=== PATIENT | female | born 1975 | race Caucasian/White ===

== ENCOUNTER 2025-03-02 13:20 | Outpatient (CLI) | payer MEDICAID, SELFPAY | END 2025-03-02 13:21 | disposition home or self-care (01) | LOC: AMB 03-24 04:08 | PROVIDERS: Visit Provider Internal Medicine | DX: R42 Dizziness and giddiness (principal) | CPT/HCPCS: A0425; A0429 ==

== ENCOUNTER 2025-03-02 13:44 | Emergency (ER) | payer MEDICAID, SELFPAY ==
[2025-03-02 13:48] VITALS: BP 135/71; PULSE 64; RESP 16; TEMP 36.7; O2SAT 97; BMI 26.6
[2025-03-02 14:00] VITALS: BP 128/66; PULSE 62; RESP 14; O2SAT 99
--- NOTE | 2025-03-02 14:04 | ED.GENADULT ---
HPI - General Adult General Chief complaint: Dizziness/Vertigo Stated complaint: Dizzy Time Seen by Provider: 03/02/25 13:50 History of Present Illness HPI narrative: Patient is a 49-year-old woman who lives in [place]. She tells me she has stroke 6 months ago but is uncertain what medication to use on. Patient states she has been eating and drinking fine and not using any substances. She has had no fevers no chills no night sweats no cough no shortness of breath. She has no numbness no tingling but does feel lightheaded when she stands up. She has no focal complaints otherwise. She is otherwise in her usual state of health. Related Data Home Medications ?Medication ?Instructions ?Recorded ?Confirmed amlodipine 5 mg tablet 5 mg PO DAILY 03/02/25 03/02/25 aspirin 81 mg tablet 81 mg PO DAILY 03/02/25 03/02/25 atorvastatin 80 mg tablet 80 mg PO QHS 03/02/25 03/02/25 carvedilol 12.5 mg tablet 12.5 mg PO BID 03/02/25 03/02/25 cholecalciferol (vitamin D3) 50 50 mcg PO DAILY 03/02/25 03/02/25 mcg (2,000 unit) tablet (D3 DOTS) escitalopram oxalate 10 mg tablet 10 mg PO DAILY 03/02/25 03/02/25 lisinopril 40 mg tablet 40 mg PO DAILY 03/02/25 03/02/25 methocarbamol 750 mg tablet 750 mg PO QID 03/02/25 03/02/25 sennosides 8.6 mg capsule (senna) 8.6 mg PO DAILY 03/02/25 03/02/25 trazodone 50 mg tablet 50 mg PO QHS 03/02/25 03/02/25 Allergies Allergy/AdvReac Type Severity Reaction Status Date / Time No Known Drug Allergies Allergy Verified 03/02/25 13:48 Review of Systems Status of ROS: Reports: 10 or more systems reviewed and unremarkable except as noted in History and below [facility] Social History Smoking Status: Current every day smoker How often do you have a drink containing alcohol: never AUDIT-C Alcohol total score: 0 Non-prescribed substance use: former substance user 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 Poor dentition. EYES: No scleral icterus. LYMPH: No supraclavicular or cervical lymphadenopathy. SKIN: Visible skin seen during exam normal or with benign process only. EXT: No dependent lower extremity pedal edema. HEART: Regular rate and rhythm with no murmurs, rubs, or gallops. LUNGS: Clear to auscultation bilaterally with no crackles or wheezes. ABD: Soft, non tender, non distended. PSYCH: Good eye contact, speech is not pressured. Neurologic she does wear splint on her right ankle likely for footdrop. She has absolutely no neurologic findings on exam otherwise Const: Vital Signs, click to edit/add: Vital Signs - 24 hr 03/02/25 13:48 03/02/25 14:00 03/02/25 14:30 Temperature 98.0 F Pulse Rate 62 60 Pulse Rate [Pulse Oximeter] 64 Respiratory Rate 16 14 16 Blood Pressure 128/66 Blood Pressure [Ri ght Upper Arm] 135/71 Pulse Oximetry 97 99 97 Oxygen Delivery Me thod Room Air Course Course ED Course: Patient seen and examined. EKG CBC UA comprehensive metabolic panel pending. Vital Signs Vital signs: Initial Vital Signs Temperature 98.0 F 03/02/25 13:48 Temperature Source Temporal Artery Scan 03/02/25 13:48 Pulse Rate 64 03/02/25 13:48 Pulse Rhythm Regular 03/02/25 13:48 Respiratory Rate 16 03/02/25 13:48 Blood Pressure 135/71 03/02/25 13:48 Blood Pressure Mean 92 03/02/25 13:48 Blood Pressure Position Supine 03/02/25 13:48 Pulse Oximetry 97 03/02/25 13:48 Oxygen Delivery Method Room Air 03/02/25 13:48 Vital Signs Temperature 98.0 F 03/02/25 13:48 Pulse Rate 64 03/02/25 13:48 Respiratory Rate 16 03/02/25 13:48 Blood Pressure 135/71 03/02/25 13:48 Pulse Oximetry 97 03/02/25 13:48 Oxygen Delivery Method Room Air 03/02/25 13:48 Temperature 98.0 F 03/02/25 13:48 Pulse Rate 60 03/02/25 14:30 Respiratory Rate 16 03/02/25 14:30 Blood Pressure 128/66 03/02/25 14:00 Pulse Oximetry 97 03/02/25 14:30 Oxygen Delivery Method Room Air 03/02/25 13:48 Medical Decision Making MDM Narrative Medical decision making narrative: Patient is a 49-year-old woman who has been feeling somewhat weak. No focal neurologic defects although she does wear splint on her right leg for presume footdrop. I did noted a normal exam. In addition I in order normal vital signs normal CBC electrolytes and urine as well as EKG. At this time I do not believe she has any significant pathology and will be returned [place]. I did ask her to establish with primary care doctor she does have some significant comorbidities. Lab Data Labs: Lab Results 03/02/25 03/02/25 Range/Units 14:16 14:20 WBC 7.89 (4.50-11.00) K/uL RBC 4.23 (4.00-5.20) m/uL Hgb 13.0 (12.0-16.0) gm/dL Hct 39.7 (33.0-51.0) % MCV 94 (80-100) fL MCH 31 (26-34) pg MCHC 33 (32-36) gm/dL RDW Coeff of Jeff 13.9 (11.5-15.5) % Plt Count 305 (140-440) K/uL Neut % (Auto) 55.1 (42.0-72.0) % Lymph % (Auto) 29.9 (20-44) % [place] % (Auto) 7.6 (0.0-11.0) % Eos % (Auto) 6.5 (0.0-7.0) % Baso % (Auto) 0.8 (0.0-3.0) % Neut # (Auto) 4.35 (1.7-7.0) K/uL Lymph # (Auto) 2.36 (0.90-2.90) K/uL [place] # (Auto) 0.60 (0.00-0.90) K/UL Eos # (Auto) 0.51 H (0.00-0.50) K/uL Baso # (Auto) 0.06 (0.00-0.30) K/uL Abs Immat Gran (auto) 0.01 (0.00-0.30) K/uL Imm/Tot Granulo (auto) 0.1 % Sodium 137 (135-149) mmol/L Potassium 4.2 (3.6-5.1) mmol/L Chloride 100 (96-114) mmol/L Carbon Dioxide 28 (20-32) mmol/L Anion Gap 9 (7-15) mEq/L BUN 25 (7-30) mg/dL Creatinine 1.0 (0.5-1.5) mg/dL Estimated Creat Clear 65.45 Estimated GFR 69 ml/min Glucose 125 H (60-115) mg/dL Calcium 9.1 (8.4-10.6) mg/dL Total Bilirubin 0.4 (0.1-1.5) mg/dL AST 26 (12-35) U/L ALT 24 (4-35) U/L Alkaline Phosphatase 74 (40-150) U/L Total Protein 7.1 (6.0-8.3) g/dL Albumin 4.3 (3.3-5.0) g/dL Urine Color Yellow (Yellow) Urine Appearance Clear (Clear) Urine pH 5.5 (5.0-8.5) Ur Specific Steele <= 1.005 (1.000-1.030) Urine Protein Negative (Negative) Urine Glucose (UA) Negative (Negative) Urine Ketones Negative (Negative) Urine Blood Negative (Negative) Urine Nitrite Negative (Negative) Urine Bilirubin Negative (Negative) Urine Urobilinogen 0.2 (0.2-1.0) Ur Leukocyte Esterase Negative (Negative) Discharge Plan Discharge Clinical Impression: Weakness Patient Disposition: Home, Self-Care Condition: Stable Instructions: Weakness (ED) Additional Instructions: Continue current medications Establish with primary care doctor. Prescriptions: No Action amlodipine 5 mg tablet 5 mg PO DAILY aspirin 81 mg tablet 81 mg PO DAILY atorvastatin 80 mg tablet 80 mg PO QHS carvedilol 12.5 mg tablet 12.5 mg PO BID Rx Instructions: must administer with a meal/food escitalopram oxalate 10 mg tablet 10 mg PO DAILY lisinopril 40 mg tablet 40 mg PO DAILY senna 8.6 mg capsule 8.6 mg PO DAILY methocarbamol 750 mg tablet 750 mg PO QID trazodone 50 mg tablet 50 mg PO QHS cholecalciferol (vitamin D3) [D3 DOTS] 50 mcg (2,000 unit) tablet 50 mcg PO DAILY Follow Up/Referrals: Provider,Not a Local [Primary Care Provider, Family Practice] Stand Alone Forms: MyHealth Info Instructions
[2025-03-02 14:21] LABS: Appearance Urine Clear (Clear)
[2025-03-02 14:30] VITALS: PULSE 60; RESP 16; O2SAT 97
[2025-03-02 14:31] LABS: Hematocrit* 39.7 % (33.0-51.0); Hemoglobin* 13.0 gm/dL (12.0-16.0); Immature Granulocytes Abs Auto 0.01 K/uL (0.00-0.30); Immature Granulocytes Pct Auto 0.1 %; Lymphocytes Absolute Auto 2.36 K/uL (0.90-2.90); Mean Corpuscular HGB Conc 33 gm/dL (32-36); Mean Corpuscular Hemoglobin 31 pg (26-34); Mean Corpuscular Volume 94 fL (80-100); RDW Coefficient of Variation % 13.9 % (11.5-15.5); Red Blood Count* 4.23 m/uL (4.00-5.20); White Blood Count* 7.89 K/uL (4.50-11.00)
[2025-03-02 14:32] VITALS: BP 144/79; PULSE 62; RESP 20; O2SAT 97
[2025-03-02 14:48] LABS: Albumin* 4.3 g/dL (3.3-5.0); Chloride* 100 mmol/L (96-114); Sodium* 137 mmol/L (135-149)
[2025-03-02 14:49] LABS: Potassium* 4.2 mmol/L (3.6-5.1); Slide Review Reflex No
--- OUTSIDE RECORDS SUMMARY | 2025-03-02 14:49 | XMS_ITS | Clinical Summary ---
Author Organization [facility] Address [address] [place] [address] Care Team Providers Care Commutator Undercutter Name Role Phone Unavailable Primary Care Provider Unavailabl e Allergies No known active allergies Social History Tobacco Use Types Packs/Day Years Used Date Smoking Tobacco: Never Assessed Comments Unknown Sex and Gender Information Value Date Recorded Sex Assigned at Not on file Legal Sex Female 12:02 AM CDT Gender Identity Not on file Sexual Orientation Not on file Plan of Treatment Health Maintenance Due Date Last Done Comments Pneumococcal Vaccine: 50+ Years (1 of 1 - PCV) 025 RSV Vaccines (1 - 1-dose 75+ series) 2049
--- OUTSIDE RECORDS SUMMARY | 2025-03-02 14:49 | XMS_ITS | CCD ---
Author Organization Unknown Care Team Providers Care Land Management Supervisor Name Role Phone Tova Conway MD Primary Care Provider Un available Unavailable Chronic Care Management Unavaila ble Summary Purpose [employer] Insurance Providers Payer name Policy type / Coverage type Covered republican ID Effective Begin Date Effective End Date Medicaid [place] [id number] Unknown Family History Family History data not found Medication Administered No Medication Administered data Medical Equipment No Medical Equipment data Assessments No Assessment data Reason For Visit No Reason For Visit data Review of Systems No Review of Systems data Physical Exam No Physical Exam data History of Present Illness No History of Present Illness data Advance Directives No Advance Directive data
--- OUTSIDE RECORDS SUMMARY | 2025-03-02 14:50 | XMS_ITS | Clinical Summary ---
Author Organization [facility] Address [address] [place] [id number] Care Team Providers Care Solar Design Engineer Name Role [facility] Provider Sky Mtz SHOT PEEN OPERATOR Unavailable [phone] Tova De La Rosa RN Unavailable [phone] Allergies No known active allergies Medications wheelchairIndica tions:Right hemiparesis (HC),Acute ischemic right GEORGE stroke (HC),Impaired functional mobility, balance, gait, and endurance,Impair ed mobility and ADLs Wheelchair: Standard with leg rests: (Swing away Length of need: 99 months 1 Each 10/20/19 25 Active acetaminophen (TYLENOL EXTRA STRGTH) 500 mg tabletIndication s:Chronic low back pain, unspecified back pain laterality, unspecified whether sciatica present Take 2 Tablets (1,000 mg) by mouth three times daily. Max acetaminophen dose: 4000mg in 24 hrs. 100 Tablet 02/02/20 25 Active atorvastatin (LIPITOR) 80 mg tabletIndication s:Cerebrovascula r accident (CVA), unspecified mechanism (HC) Take 1 Tablet (80 mg) by mouth at bedtime. 30 Tablet 02/02/20 25 Active sennosides (Senna) 8.6 mg tabletIndication s:Constipation, unspecified constipation type Take 1 Tablet (8.6 mg) by mouth once daily. 30 Tablet 02/02/20 25 Active methocarbamoL 750 mg tabletIndication s:Chronic low back pain, unspecified back pain laterality, unspecified whether sciatica present Take 1 Tablet (750 mg) by mouth four times daily. 120 Tablet 02/02/20 25 Active traZODone (DESYREL) 50 mg tabletIndication s:Insomnia, unspecified type Take 1 Tablet (50 mg) by mouth at bedtime. 30 Tablet 02/02/20 25 Active amLODIPine (NORVASC) 5 mg tabletIndication s:HTN (hypertension) Take 1 Tablet (5 mg) by mouth once daily. 30 Tablet 02/02/20 25 Active lisinopriL (PRINIVIL; ZESTRIL) 40 mg tabletIndication s:Cerebrovascula r accident (CVA), unspecified mechanism (HC) Take 1 Tablet (40 mg) by mouth once daily. 30 Tablet 02/02/20 25 Active cholecalciferol (Vitamin D3) 2,000 unit tabletIndication s:Vitamin D deficiency Take 1 Tablet (2,000 units) by mouth once daily. 30 Tablet 02/02/20 25 Active carvediloL (COREG) 12.5 mg tabletIndication s:Cerebrovascula r accident (CVA), unspecified mechanism (HC) Take 1 Tablet (12.5 mg) by mouth two times daily with meals. 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 30 Tablet 02/02/20 25 Active benzocaine (dental) (Oral Pain Relief) 20 % mucosal gelIndications:M outh pain Apply a thin layer to affected areas inside mouth up to 4 times daily. 9 g 02/02/20 25 Active aspirin chewable 81 mg tabletIndication s:Cerebrovascula r accident (CVA), unspecified mechanism (HC) Chew 1 Tablet (81 mg) by mouth once daily. 30 Tablet 02/02/20 25 Active LORazepam (Ativan) 0.5 mg tabIndications:A erophobia Take 1 tab (0.5 mg) by mouth 30-60 minutes before flying. 2 Tablet 02/02/20 25 Active sennosides (Senna) 8.6 mg tabletIndication s:Constipation, unspecified constipation type Take 1 Tablet (8.6 mg) by mouth once daily. 30 Tablet 09/27/19 25 025 Discontin ued(Reord er (E-cancel not sent)) atorvastatin (LIPITOR) 80 mg tabletIndication s:Cerebrovascula r accident (CVA), unspecified mechanism (HC) Take 1 Tablet (80 mg) by mouth at bedtime. 30 Tablet 5 2:37 PM CDT 09/29/19 25 025 Discontin ued(Reord er (E-cancel not sent)) lisinopriL (PRINIVIL; ZESTRIL) 40 mg tabletIndication s:Cerebrovascula r accident (CVA), unspecified mechanism (HC) Take 1 Tablet (40 mg) by mouth once daily. 30 Tablet 5 12:08 PM CDT 09/29/19 025 Discontin ued(Reord er (E-cancel not sent)) carvediloL (COREG) 12.5 mg tabletIndication s:Cerebrovascula r accident (CVA), unspecified mechanism (HC) Take 1 Tablet (12.5 mg) by mouth two times daily with meals. 60 Tablet 5 12:08 PM CDT 09/29/19 025 Discontin ued(Reord er (E-cancel not sent)) aspirin chewable 81 mg chewable tabletIndication s:Cerebrovascula r accident (CVA), unspecified mechanism (HC) Chew 1 Tablet (81 mg) by mouth once daily. 30 Tablet 09/29/19 25 025 Discontin ued(Reord er (E-cancel not sent)) amLODIPine (NORVASC) 5 mg tabletIndication s:HTN (hypertension) Take 1 Tablet (5 mg) by mouth once daily. 30 Tablet 5 11:20 AM CDT 11/07/19 25 025 Discontin ued(Reord er (E-cancel not sent)) acetaminophen (TYLENOL EXTRA STRGTH) 500 mg tabletIndication s:Chronic low back pain, unspecified back pain laterality, unspecified whether sciatica present Take 2 Tablets (1,000 mg) by mouth three times daily. Max acetaminophen dose: 4000mg in 24 hrs. 100 Tablet 11/15/19 25 025 Discontin ued(Reord er (E-cancel not sent)) traZODone (DESYREL) 50 mg tabletIndication s:Insomnia, unspecified type Take 1 Tablet (50 mg) by mouth at bedtime. 30 Tablet 5 12:44 PM CDT 11/28/19 25 025 Discontin ued(Reord er (E-cancel not sent)) cholecalciferol (Vitamin D3) 2,000 unit tabletIndication s:Vitamin D deficiency Take 1 Tablet (2,000 units) by mouth once daily. 30 Tablet 12/27/19 025 Discontin ued(Reord er (E-cancel not sent)) methocarbamoL 750 mg tabletIndication s:Chronic low back pain, unspecified back pain laterality, unspecified whether sciatica present Take 1 Tablet (750 mg) by mouth four times daily. 120 Tablet 5 3:35 PM CDT 12/28/19 025 Discontin ued(Reord er (E-cancel not sent)) benzocaine (dental) (Oral Pain Relief) 20 % mucosal gelIndications:M outh pain Apply a thin layer to affected areas inside mouth up to 4 times daily. 9 g 5 2:29 PM CDT 01/11/20 025 Discontin ued(Reord er (E-cancel not sent)) escitalopram oxalate (LEXAPRO) 10 mg tablet Take 1 Tablet (10 mg) by mouth once daily. 30 Tablet 5 3:01 PM CDT 01/18/20 25 025 Discontin ued(Reord er (E-cancel not sent)) Active Problems Problem Noted Date Diagnosed Date Acute ischemic right GEORGE stroke 09/07/2024 Hypertension 09/07/2024 Current smoker 09/07/2024 History of methamphetamine abuse 09/07/2024 Anemia 09/07/2024 High-risk human papillomavir us (HPV) DNA detected in cervical specimen, not type 16 or 18 09/04/2024 Overview (09/04/2024): 07/2024 NIL/HPV +, HPV 16/18 negative Plan: PAP/HPV due 07/2025 Stroke 08/28/2024 Encounters Date Type Department Care Team Description 02/28/2025 1:37 PM MOBILITY DEVELOPER - 02/28/2025 11:59 PM MOBILITY DEVELOPER Hospital Encounter [address] [place] [address] Sky Mtz, Kaylie Kemp, PT 02/28/2025 Travel 02/26/2025 10:15 AM MOBILITY DEVELOPER - 02/26/2025 11:59 PM MOBILITY DEVELOPER Hospital Encounter [address] [address] Sky Mtz, Kaylie Kemp, PT 02/25/2025 10:31 AM MOBILITY DEVELOPER - 02/25/2025 11:59 PM MOBILITY DEVELOPER Hospital Encounter [address] [place] [address] Sky Mtz, Cintia Castro, OT 02/25/2025 Travel 02/20/2025 8:35 AM CDT - 02/20/2025 11:59 PM CDT Hospital Encounter [address] [address] Sky Mtz, Kaylie Kemp, PT 02/20/2025 Travel 02/18/2025 8:28 AM CDT - 02/18/2025 11:59 PM CDT Hospital Encounter [address] [place] [address] Sky Mtz, Lucina Gay, KYARA Right hemiparesis (HC); Acute ischemic right GEORGE stroke (HC); Impaired functional mobility, balance, gait, and endurance; Impaired mobility and ADLs; Impaired cognition 02/18/2025 Travel 02/15/2025 10:03 AM CDT - 02/15/2025 11:59 PM CDT Hospital Encounter [address] [address] Sky Mtz, Katerina Manuel OT Right hemiparesis (HC); Acute ischemic right GEORGE stroke (HC); Impaired functional mobility, balance, gait, and endurance; Impaired mobility and ADLs; Impaired cognition 02/15/2025 Travel 02/08/[address] [address] Vince Wellington MD 02/05/2025 Patient Outreach [address] [address] Tova De La Rosa RN Stroke Rehab Care Coordination - [facility] 02/01/2025 8:30 AM CDT [facility] [address] [address] Sky Mtz NP Transitional Care Visit (Discharge Summary) 02/01/2025 Travel 01/31/2025 1:00 PM CDT [facility] [address] [address] Vince Wellington MD 01/31/2025 Travel 01/29/2025 9:30 AM CDT Office Visit [address] [address] Veronica Crane, PhD, LP Individual Therapy 01/28/2025 Orders Only [address] [address] Sky Mtz NP <No scans attached> 01/25/2025 Travel 01/24/2025 8:30 AM CDT [facility] [address] [address] Sky Mtz NP Transitional Care Visit (Follow-Up) 01/24/2025 Orders Only [address] [address] Sky Mtz, SHEEBA <No scans attached> 01/22/2025 9:30 AM CDT Office Visit [address] [address] Veronica Crane, PhD, LP Individual Therapy 01/21/2025 Travel 01/18/2025 8:30 AM CDT [facility] [address] [address] Sky Mtz, SHEEBA Transitional Care Visit (Follow-Up) 01/17/2025 1:00 PM CDT [facility] [address] [address] Vince Wellington MD 01/17/2025 Travel 01/15/2025 12:00 PM CDT Office Visit [address] [address] Veronica Crane, PhD, LP Individual Therapy 01/14/2025 Travel 01/10/2025 9:00 AM CDT [facility] [address] [address] Sky Mtz, SHEEBA Transitional Care Visit (Follow-Up) 01/10/2025 Orders Only [address] [address] Sky Mtz NP <No scans attached> 01/10/2025 Orders Only [address] [address] Sky Mtz NP <No scans attached> 01/08/2025 2:00 PM CDT Office Visit [facility] [address] [address] Veronica Crane, PhD, LP Individual Therapy 01/07/2025 Travel 01/05/2025 10:00 AM CDT Nurse/Clinic Staff Only [facility] [address] [place] [address] Monitor, Mhmy Event/Holter Zio Monitor (2 of 2 monitors ordered) 01/04/2025 1:00 PM CDT [facility] [address] [address] Sky Mtz NP Transitional Care Visit (Follow-Up) 12/31/2024 11:30 AM CDT [facility] [address] [address] Vince Wellington MD 12/31/2024 Travel 12/28/2024 Travel 12/27/2024 8:30 AM CDT [address] [address] Sky Mtz NP Transitional Care Visit (Follow-Up) 12/27/2024 Orders Only [address] [address] Sky Mtz NP <No scans attached> 12/26/2024 Orders Only [address] [address] Sky Mtz NP <No scans attached> 12/25/2024 Lab Requisition [facility] [phone] Sky Mtz NP 12/21/2024 Lab Requisition [facility] [phone] Sky Mtz NP 12/21/2024 Travel 12/20/2024 10:00 AM CDT [facility] [address] [address] Sky Mtz, SHEEBA Transitional Care Visit (Follow-Up) 12/20/2024 Orders Only [address] [address] Sky Mtz, SHEEBA <No scans attached> 12/18/2024 3:00 PM CDT Office Visit [address] [address] Veronica Crane, PhD, LP Individual Therapy 12/18/2024 Travel 12/14/2024 8:30 AM CDT [facility] [address] [address] Sky Mtz, SHEEBA Transitional Care Visit (Follow-Up) 12/14/2024 Orders Only [address] [address] Sky Mtz, SHEEBA <No scans attached> 12/11/2024 11:00 AM CDT Office Visit [address] [address] Veronica Crane, PhD, LP Individual Therapy 12/07/2024 Nurse/Clinic Staff Only [facility] [address] [place] [address] Monitor, Mhmy Event/Holter Zio Monitor (1 of 2 monitors ordered) 12/07/2024 Travel 12/06/2024 3:30 PM CDT [facility] [address] [address] Vince Wellington MD 12/06/2024 11:00 AM CDT [facility] [address] [address] Sky Mtz NP Transitional Care Visit (Follow-Up) 12/06/2024 Orders Only [facility] [address] [place] [phone] Sky Mtz, SHEEBA <No scans attached> 12/06/2024 Travel 12/04/2024 11:00 AM CDT Office Visit [facility] [address] [place] [phone] Veronica Crane, PhD, LP Individual Therapy 11/30/2024 Travel from Last 3 Months Immunizations Immunization Administration Dates Next Due Hepatitis B (Adult) 10/23/2002,05/26/2002,2002 Influenza, IIV3 (Age >=3 years) 03/13/2007 Tdap 04/25/2006 Tuberculin Skin Test, Unspecified 02/06/2018, Family History Medical History Relation Name Comments CVD Father Cancer-colon Father Heart attack Father Relation Name Status Comments Father Social History Tobacco Use Types Packs/Day Years Used Date Smoking Tobacco: Every Day Cigarettes 0.5 10.5 Started: 09/07/2014 Smokeless Tobacco: Never Tobacco Cessation:Ready to Q uit: Not Asked; Counseling Given: Not Answered Alcohol Use Standard Drinks/Week Comments Not Currently 0 (1 standard drink = 0.6 oz pur e alcohol) Social Connections Answer Date Recorded Do you often feel lonely or isolated from those around you? 4 09/07/2024 Financial Resource Strain Answer Date R ecorded Difficulty of Paying Living Expenses Not on file 09/07/2024 Difficulty of Paying Living Expenses 3 09/07/2024 Food Insecurity Answer Date Recorded Do you worry your food will run out before you are able to buy more? 1 09/07/2024 Transportation Needs Answer Date Record ed Does lack of transportation keep you from medica l appointments? 1 09/07/2024 Does lack of transportation keep you from work, meetings or getting things that you need? 2 09/07/2024 Housing Stability Answer Date Recorded What is your housing situation today? 3 09/07/2024 Interpersonal Safety Answer Date Record ed Are you being hit, kicked, p ushed or yelled at (see row info)? No 09/07/2024 Interpersonal Safety Abuse 12 - 18 Not on file 09/07/2024 Interpersonal Safety Ambulatory Vulnerability No t on file 09/07/2024 Utilities Answer Date Recorded Do you have trouble paying f or utilities (for example, heat, electricity, water, phone)? 2 09/07/2024 Comments Unknown Sex and Gender Information Value Date Recorded Sex Assigned at Not on file Legal Sex Female 12:12 AM CDT Gender Identity Not on file Sexual Orientation Not on file Obstetrics History Para Term AB IAB SAB Ectopic Multiple Livin g Live Births 2 1 1 1 1 1 1 Date Outcome GA Total Labor Labor/2nd/3rd Weight Sex Type Anes PTL [place] A1 A5 Name Clin SAB 2008 Term M Vag Living Complications:Gestational di abetes mellitus Last Filed Vital Signs Vital Sign Reading Time Taken Comments Blood Pressure 139/81 02/01/2025 2:00 PM CDT Pulse 64 02/01/2025 2:00 PM CDT Temperature 36.6 C (97.8 F) 02/01/2025 2:00 PM CDT Respiratory Rate 18 02/01/2025 2:00 PM CDT Oxygen Saturation 97% 02/01/2025 2:00 PM CDT Inhaled Oxygen Concentration - - Weight 74.6 kg (164 lb 6.4 oz) 09/09/2024 6:24 A M CDT Height 170.2 cm (5' 7) 09/07/2024 1:39 PM CDT Body Mass Index 25.75 09/07/2024 1:39 PM CDT Plan of Treatment Upcoming Encounters Date Type Department Care Team (Late st Contact Info) Description 03/05/2025 1:45 PM MOBILITY DEVELOPER Appointment [address] [address] Kaylie Sawant, PT [address] [place] [address] 03/07/2025 1:45 PM MOBILITY DEVELOPER Appointment [address] [address] Kaylie Sawant, PT [address] [place] [address] 03/07/2025 2:30 PM MOBILITY DEVELOPER Appointment [address] [place] [address] Armida Fitzpatrick, OT 35 [facility] [place] [address] 03/12/2025 9:30 AM MOBILITY DEVELOPER Appointment [address] [place] [address] Kaylie Sawant, PT 35 [facility] [address] [facility] [place] [address] 03/14/2025 8:45 AM MOBILITY DEVELOPER Appointment [address] [place] [address] Cintia Lee, OT [address] [place] [address], [place] [address] 03/14/2025 9:30 AM MOBILITY DEVELOPER Appointment [address] [place] [address] Kaylie Sawant, PT 35 [facility] [place] [address] 03/18/2025 11:00 AM MOBILITY DEVELOPER Appointment [address] [place] [address] Kaylie Sawant, PT [facility] [place] [address] 03/20/2025 9:30 AM MOBILITY DEVELOPER [address]ointment [address] [place] [place] [address] Armida Fitzpatrick, OT 35 [facility] [place] [address] 03/26/2025 12:15 PM MOBILITY DEVELOPER Appointment [address] [place] [address] Cintia Lee, OT [address] [place] [address] 03/26/2025 1:00 PM MOBILITY DEVELOPER Appointment [address] [place] [address] Kaylie Sawant, PT 35 [place] [address] 03/28/2025 10:15 AM MOBILITY DEVELOPER Appointment [address] [address] Kaylie Sawant, PT 35 [place] [address] 04/02/2025 12:15 PM MOBILITY DEVELOPER Appointment [address] [place] [address] Cintia Lee, OT [address] [place] [address] 04/02/2025 1:00 PM MOBILITY DEVELOPER Appointment [address] [address] Kaylie Sawant, PT 35 [place] [address] 04/04/2025 10:15 AM MOBILITY DEVELOPER Appointment [address] [address] Kaylie Sawant, PT [address] [facility] [place] [address] 04/09/2025 12:15 PM MOBILITY DEVELOPER Appointment [address] [address] Cintia Lee, OT [address] [place] [address] 04/09/2025 1:00 PM MOBILITY DEVELOPER Appointment [address] [place] [address] Kaylie Sawant, PT 35 [place] [address] 04/11/2025 10:15 AM MOBILITY DEVELOPER Appointment [address] [address] Kaylie Sawant, PT 35 [place] [address] 04/23/2025 10:45 AM MOBILITY DEVELOPER Office Visit [facility] [address] [place] [phone] Vince Wellington MD [address] [place], [place] [phone] Health Maintenance Due Date Last Done Comments Depression screening for age 12+ 1986 HIV for age 15-65 1989 BMI (ht and wt on same day) for age 18+ 1992 Hepatitis C screening for age 18-79 1992 Pneumococcal series for age 50+ (1 of 2 - PCV) 1993 Tetanus booster 04/25/2016 04/25/2006 Colonoscopy through age 75 2019 Mammogram for age 45-75 2019 Zoster (shingles) series for age 50+ (1 of 2) 2024 Influenza Vaccine (#1) 2024 03/13/2007 Pap test for age 21-65 08/15/2025 08/15/2024, 2024 Lipids for age 45-75 08/27/2029 08/27/2024 RSV vaccine for adults or pr egnancy (1 - 1-dose 75+ series) 2049 Hepatitis B series for 19+ Completed 10/23, 05/26/2002, 04/25/2002 Procedures Procedure Name Priority Date/Time Associated Diagnosis Comments VITAMIN D 25 (DEFICIENCY) Routine 12/26/2024 7:03 AM CDT Essential (primary) hypertension EXTENDED HOLTER Routine 12/07/2024 Cerebrovascular accident (CVA), unspecified mechanism (HC) EXTENDED HOLTER Routine 12/07/2024 Cerebrovascular accident (CVA), unspecified mechanism (HC) LIPID PANEL ONELIA 08/27/2024 10:45 PM CDT HPV HIGH RISK Routine 08/15/2024 3:08 PM CDT Cervical cancer screening from Last 3 Months or Most Recently Relevant to Health Maintenance Results * VITAMIN D 25 (DEFICIENCY) (12/26/2024 7:03 AM CDT) Pathologist [facility] VITAMIN D TOTAL 61.6 20.0 - 80.0 ng/mL 12/26/2024 1:32 PM CDT [facility] Blood BLOOD SPECIMEN / Unknown Venipuncture / Unknown 12/26/2024 7:03 AM CDT 12/26/2024 8:49 AM CDT Narrative [facility] - 12/26/2024 1:32 PM CDT Vitamin D Status Deficiency: <20 ng/mL Insufficiency: 20-29 ng/mL Sufficiency: 30-80 ng/mL Possible Toxicity: >80 ng/mL Based on [place] [employer] recommendations Biotin supplements may cause clinically significant interference for this test assay. If interference is suspected, it is strongly recommended that biotin is discontinued for at least one week prior to retesting. us Sky Mtz NP SEND OUTS Final Resu lt [facility] [address] [place] [address], [place] * ZIO PATCH XT - weekly to monthly symptoms. (12/07/2024) 12/07/2024 Narrative Rigoberto Vza MD - 01/31/2025 12:00 AM CDT Predominant rhythm sinus with intact AV conduction (HR 44-160, avg 59 bpm) Rare PACs were present Rare isolated PVCs were present Patient triggered events did not correlate to arrhythmias Please see scan document for full report. Signed By Rigoberto Vaz MD Procedure Note Rigoberto Vaz MD - 01/31/2025 Predominant rhythm sinus with intact AV conduction (HR 44-160, avg 59bpm) Rare PACs were present Rare isolated PVCs were present Patient triggered events did not correlate to arrhythmias Please see scan document for full report. Signed By Rigoberto Vaz MD PFI Acquisition Treat DO CARDIAC SERVICES ORD Final Result * ZIO PATCH XT - weekly to monthly symptoms. (12/07/2024) 12/07/2024 Narrative Cory Lopez MD - 01/30/2025 12:00 AM CDT - No significant atrial fibrillation - No significant SVT - No NSVT - No sustained VT - No high grade AVB or symptomatic pauses - <1% PVCs. Symptoms correlate with no significant arrhythmia where EGMs available and interpretable. Impression: Normal sinus rhythm with no malignant arrhythmia. Please see scan document for full report. Signed By Cory Lopez MD Procedure Note Cory Lopez MD - 01/30/2025 - No significant atrial fibrillation - No significant SVT - No NSVT - No sustained VT - No high grade AVB or symptomatic pauses - <1% PVCs. Symptoms correlate with no significant arrhythmia where EGMs available andinterpretable. Impression: Normal sinus rhythm with no malignant arrhythmia. Please see scan document for full report. Signed By Cory Lopez MD PFI Acquisition Treat DO CARDIAC SERVICES ORD Final Result * Lipid Panel (08/27/2024 10:45 PM CDT) CHOLESTEROL,TOTAL 170 100 - 199 mg/dL 08/28/2024 11:27 PM CDT [facility] Comment: Cholesterol, Total Reference Ranges Desirable <200 mg/dL Borderline 200-239 mg/dL High >=240 mg/dL TRIGLYCERIDES 55 <150 mg/dL 08/28/2024 11:27 PM CDT [facility] HDL CHOLESTEROL 59 >40 mg/dL 11:27 PM CDT [facility] NON-HDL CHOLESTEROL 111 <145 mg/dl 08/28/2024 11:27 PM CDT [facility] CHOL/HDL RATIO 2.88 <4.50 08/28/2024 11:27 PM CDT [facility] LDL CHOLESTEROL 100 <=130 mg/dL 08/28/2024 11:27 PM CDT [facility] VLDL CHOLESTEROL 11 <=30 mg/dL 08/28/2024 11:27 PM CDT [facility] PROVIDER ORDERED STATUS RANDOM 08/28/2024 11:27 PM CDT [facility] Blood BLOOD SPECIMEN / Unknown Venipuncture / Unknown 08/27/2024 10:45 PM CDT 08/27/2024 10:47 PM CDT Justin CHIN CHEMISTRY Final Result [facility] [address] [place] [address], * (ABNORMAL) HPV HIGH RISK (08/15/2024 3:08 PM CDT) TYPE 16 Negative Negative 08/21/2024 5:08 PM CDT [facility] TYPE 18 Negative Negative 08/21/2024 5:08 PM CDT [facility] OTHER HIGH RISK TYPES Positive(A) Negative 08/21/2024 5:08 PM CDT [facility] Other (Cervical) Non-Blood / Unknown 08/15/2024 3:08 PM CDT 08/16/2024 2:02 PM CDT Narrative [facility] - 08/21/2024 5:08 PM CDT Specimen is positive for the DNA of any one of, or combination of, the following high risk HPV types: 31, 33, 35, 39, 45, 51, 52, 56, 58, 59, 66, 68. HPV types 16 and 18 DNA were undetectable or below the pre-set threshold. Methodology: Rocky Della 4800 HPV Test us Subha CRUZ MICROBIOLOGY Final R esult [facility] [address] [place] [address], [place] from Last 3 Months or Most Recently Relevant to Health Maintenance Insurance [place] [address] Advance Directives * Full Code (Latest Code Status on File) Date Activated Date Inactivated Comments 09/07/2024 1:38 PM 09/20/2024 1:58 PM Question Answer Comments Code Status Discussion: Reviewed Preferences * Full Code Date Activated Date Inactivated Comments 08/28/2024 1:35 PM 09/07/2024 1:35 PM Question Answer Comments Code Status Discussion: Reviewed Preferences Care Teams Solar Design Engineer Relationship Specialty Start Date End Date [facility] - [address] [place] [address] PCP - General 10/04/18 Sky Mtz NP [address] [facility] [place] [address] [place] [address] Nurse Practitioner - Adult 09/28/24 Tova De La Rosa, BETTY [address] [address] Stroke Rehab Care Coordination - [facility] Registered Nurse 02/05/25
[2025-03-02 14:51] LABS: Alanine Aminotransferase* 24 U/L (4-35); Anion Gap 9 mEq/L (7-15); Aspartate Amino Transferase* 26 U/L (12-35); Blood Urea Nitrogen* 25 mg/dL (7-30); Carbon Dioxide* 28 mmol/L (20-32); Creatinine* 1.0 mg/dL (0.5-1.5); Est. Creatinine Clearance* 65.45; Estimated Glomerular Filt Rate 69 ml/min
[2025-03-02 14:52] LABS: Alkaline Phosphatase* 74 U/L (40-150); Bilirubin Total* 0.4 mg/dL (0.1-1.5); Calcium* 9.1 mg/dL (8.4-10.6); Glucose* 125 mg/dL (60-115); Total Protein* 7.1 g/dL (6.0-8.3)
[2025-03-02 15:02] VITALS: BP 136/79; PULSE 66; RESP 15; O2SAT 99
== END 2025-03-02 15:58 | disposition home or self-care (01) ==
PROVIDERS: Emergency Provider Internal Medicine
DX: R53.1 Weakness (principal); Z79.899 Other long term (current) drug therapy
CPT/HCPCS: 36415; 80053; 81003; 85025; 93005; 99283; 99284

== ENCOUNTER 2025-03-02 15:57 | Outpatient (CLI) | payer MEDICAID, SELFPAY | END 2025-03-02 15:58 | disposition home or self-care (01) | LOC: AMB 03-26 07:32 | PROVIDERS: Visit Provider Internal Medicine | DX: R42 Dizziness and giddiness (principal) | CPT/HCPCS: A0425; A0428 ==